=== PATIENT | male | born 1985 | race Caucasian/White ===

== ENCOUNTER 2019-12-01 07:40 | Emergency (ER) | payer SELFPAY ==
[~2019-12-01] VITALS: Ht 182.9 cm; Wt 91.6 kg
[~2019-12-01 07:40] MED LIST: IBUP-1623
--- NOTE | 2019-12-01 08:29 | NUR ---
Pt brought back from triage straight to ct
[2019-12-01] MEDS ORDERED: KETOROLAC 30 MG/1 ML IM ONE (08:30)
[2019-12-01] MEDS ORDERED: KETOROLAC 30 MG/1 ML ONE (08:46)
[2019-12-01 08:49] VITALS: BP 118/78
--- NOTE | 2019-12-01 08:49 | NUR ---
PT BACK IN ROOM. AWARE OF NEEDED URINE SAMPLE. RESTING IN BED.
[2019-12-01 08:53] LABS: BASOPHILS # (AUTO) 0.06 x10^3/uL (0-0.1); BASOPHILS % (AUTO) 1 % (0-1); EOSINOPHILS # (AUTO) 0.05 x10^3/uL (0-0.4); EOSINOPHILS % (AUTO) 1 % (1-7); LYMPHOCYTES # (AUTO) 1.75 x10^3/uL (1-3.4); LYMPHOCYTES % (AUTO) 16 % (22-44); MD NO; MEAN CORPUSCULAR HGB CONC 33.5 g/dL (33.2-36.2); MEAN CORPUSCULAR VOLUME 92.8 fL (81-97); MEAN PLATELET VOLUME 8.2 fL (7.4-10.4); MONOCYTES # (AUTO) 0.66 x10^3/uL (0.2-0.8); MONOCYTES % (AUTO) 6 % (2-9); NEUTROPHILS # (AUTO) 8.44 x10^3/uL (1.8-6.8); NEUTROPHILS % (AUTO) 77 % (42-75); PLATELET COUNT 274 x10^3/uL (130-400); RED BLOOD COUNT 4.87 x10^6/uL (4.38-5.82); RED CELL DISTRIBUTION WIDTH 13.2 % (9.4-14.8)
[2019-12-01 09:01] LABS: ALBUMIN 4.1 g/dL (3.4-5.0); ANION GAP 4 mmol/L (5-15); CHLORIDE 109 mmol/L (98-107); CREATININE 1.32 mg/dL (0.7-1.3)
--- NOTE | 2019-12-01 09:38 | NUR ---
Patient/Caregiver given discharge instructions and they have confirmed that they understand the instructions. Patient ambulatory with steady gait.
[2019-12-01 09:42] LABS: MICROSCOPIC AUTO
== END 2019-12-01 09:41 ==
LOC: ED 09:35
DX: N13.2 Hydronephrosis with renal and ureteral calculous obstruction (principal); R10.32 Left lower quadrant pain; R50.9 Fever, unspecified
CPT/HCPCS: 36415; 74176; 80048; 81001; 82040; 85025; 96372; 99284; J1885